=== PATIENT | male | born 1955 | race Caucasian/White ===

== ENCOUNTER 2019-01-19 21:45 | Emergency (ER) | payer MEDICARE, MEDICAID ==
[~2019-01-19] VITALS: Ht 177.8 cm; Wt 84.1 kg
[2019-01-19] MEDS ORDERED: aspirin 81mg tab.chew PO ONE (21:50)
[2019-01-19] MEDS ORDERED: nitroGLYCERIN 0.4mg SUBLingual tab SL PRN (21:50)
--- NOTE | 2019-01-19 22:03 | NUR ---
EKG CALLED FOR 3 TIMES OVER RADIO WITH NO RESPONSE FROM TECH, PT TRIAGED AND BROUGHT STRAIGHT BACK, EKG PERFORMED IN ROOM.
[2019-01-19 22:14] LABS: BASOPHILS # (AUTO) 0.1 X10'3 (0-0.2); BASOPHILS % (AUTO) 1.4 % (0-1); EOSINOPHILS # (AUTO) 0.5 X10'3 (0-0.9); EOSINOPHILS % (AUTO) 5.4 % (0-6); HEMATOCRIT 45.5 % (42.0-52.0); HEMOGLOBIN 15.4 g/dl (14.0-17.9); LYMPHOCYTES # (AUTO) 2.5 X10'3 (1.1-4.8); LYMPHOCYTES % (AUTO) 27.6 % (21-51); MEAN CORPUSCULAR HEMOGLOBIN 32.1 PG (27.0-31.0); MEAN CORPUSCULAR HGB CONC 33.8 g/dL (33.0-36.5); MEAN CORPUSCULAR VOLUME 94.9 FL (78-98); MONOCYTES # (AUTO) 0.7 X10'3 (0-0.9); MONOCYTES % (AUTO) 7.9 % (2-12); NEUTROPHILS # (AUTO) 5.3 X10'3 (1.8-7.7); NEUTROPHILS % (AUTO) 57.7 % (42-75); PLATELET COUNT 205 X10'3 (140-440); RED BLOOD COUNT 4.79 X10'6 (4.70-6.10); RED CELL DISTRIBUTION WIDTH 14.1 % (11.5-14.5); WHITE BLOOD COUNT 9.1 X10'3 (4.5-11.0)
[2019-01-19 22:29] LABS: ALANINE AMINOTRANSFERASE 16 U/L (12-78); ALBUMIN 3.2 G/DL (3.4-5.0); ALBUMIN/GLOBULIN RATIO 0.8 (1.1-1.5); ALKALINE PHOSPHATASE 66 IU/L (46-116); ANION GAP 10 (8-16); ASPARTATE AMINO TRANSFERASE 14 U/L (10-37); BILIRUBIN,TOTAL 0.3 MG/DL (0.1-1.0); BLOOD UREA NITROGEN 19 MG/DL (7-18); BUN/CREATININE RATIO 15.7 (5.4-32.0); CALCIUM 8.7 MG/DL (8.5-10.1); CHLORIDE 106 MMOL/L (99-107); CREATININE 1.21 MG/DL (0.60-1.10); GLUCOSE 111 MG/DL (70-104); POTASSIUM 3.8 MMOL/L (3.5-5.1); SODIUM 143 MMOL/L (135-145); TOTAL CARBON DIOXIDE 26.7 MMOL/L (24-32); eGFR 60 ML/MIN
[2019-01-19 22:33] VITALS: BP 106/49
[2019-01-19 22:35] LABS: MAGNESIUM 1.8 MG/DL (1.5-2.4)
== END 2019-01-20 01:22 | disposition home or self-care (01) ==
LOC: ER 21:46
DX: R06.02 Shortness of breath (principal); R07.9 Chest pain, unspecified; F17.200 Nicotine dependence, unspecified, uncomplicated
CPT/HCPCS: 36415; 71045; 80053; 83735; 83880; 84484; 85025; 93005; 99284

== ENCOUNTER 2020-04-28 19:56 | Emergency (ER) | payer MEDICARE, MEDICAID ==
[~2020-04-28] VITALS: Ht 175.3 cm; Wt 78.0 kg
[2020-04-28] MEDS ORDERED: ketorolac tromethamine 15mg/ml inj. IM ONE (20:45)
[2020-04-28] MEDS ORDERED: CYCL-1 PO (21:09)
[2020-04-28] MEDS ORDERED: IBUP-1984 PO (21:09)
[2020-04-28 21:27] VITALS: BP 132/76
== END 2020-04-28 21:29 | disposition home or self-care (01) ==
LOC: ER 19:57
DX: M54.6 Pain in thoracic spine (principal); Z79.899 Other long term (current) drug therapy
CPT/HCPCS: 96372; 99284; J1885

== ENCOUNTER 2020-09-14 02:02 | Emergency (ER) | payer MEDICARE, MEDICAID ==
[~2020-09-14] VITALS: Ht 175.3 cm; Wt 77.3 kg
[~2020-09-14 02:02] MED LIST: CYCL-1 PO
[2020-09-14 02:05] VITALS: BP 138/76
[2020-09-14] MEDS ORDERED: PRED20TA PO (02:17)
== END 2020-09-14 02:30 | disposition home or self-care (01) ==
LOC: ER 02:03
DX: R21 Rash and other nonspecific skin eruption (principal); Z79.899 Other long term (current) drug therapy
CPT/HCPCS: 99283

== ENCOUNTER 2024-03-24 09:07 | Emergency (ER) | payer MEDICARE, MEDICAID ==
[~2024-03-24] VITALS: Ht 175.3 cm; Wt 73.5 kg
[2024-03-24 09:12] VITALS: BP 113/71; PULSE 61; RESP 18; O2SAT 98
[2024-03-24] MEDS ORDERED: CEPH-585 PO (10:25)
[2024-03-24] MEDS ORDERED: NYST15CR37 TOP (10:25)
[2024-03-24] MEDS ORDERED: SULF1TAB49 PO (10:25)
[2024-03-24 11:01] VITALS: TEMP 97.8
== END 2024-03-24 11:02 | disposition home or self-care (01) ==
LOC: ER 09:07
DX: L03.314 Cellulitis of groin (principal)
CPT/HCPCS: 93005; 99283

== ENCOUNTER 2024-04-25 05:51 | Emergency (ER) | payer MEDICARE, MEDICAID ==
[~2024-04-25] VITALS: Ht 175.3 cm; Wt 81.8 kg
[~2024-04-25 05:51] MED LIST changes: +CEPH-585 PO
[2024-04-25 05:53] VITALS: TEMP 98.5
[2024-04-25 06:15] LABS: BASOPHILS # (AUTO) 0.1 X10'3 (0-0.2); EOSINOPHILS # (AUTO) 0.5 X10'3 (0-0.9); EOSINOPHILS % (AUTO) 6.7 % (0-6); HEMATOCRIT 41.6 % (42.0-52.0); HEMOGLOBIN 13.8 g/dl (14.0-17.9); LYMPHOCYTES # (AUTO) 3.1 X10'3 (1.1-4.8); LYMPHOCYTES % (AUTO) 45.3 % (21-51); MEAN CORPUSCULAR HEMOGLOBIN 32.5 PG (27.0-31.0); MEAN CORPUSCULAR HGB CONC 33.1 g/dL (33.0-36.5); MEAN CORPUSCULAR VOLUME 98.3 FL (78-98); MEAN PLATELET VOLUME 7.7 FL (7.4-10.4); MONOCYTES # (AUTO) 0.5 X10'3 (0-0.9); MONOCYTES % (AUTO) 7.3 % (2-12); NEUTROPHILS # (AUTO) 2.7 X10'3 (1.8-7.7); NEUTROPHILS % (AUTO) 39.7 % (42-75); PLATELET COUNT 201 X10'3 (140-440); RED BLOOD COUNT 4.23 X10'6 (4.70-6.10); RED CELL DISTRIBUTION WIDTH 14.4 % (11.5-14.5); WHITE BLOOD COUNT 6.9 X10'3 (4.5-11.0)
[2024-04-25 06:36] LABS: ALBUMIN 3.1 G/DL (3.4-5.0); ANION GAP 7 (8-16); BLOOD UREA NITROGEN 10 MG/DL (7-18); BUN/CREATININE RATIO 9.8 (10.0-20.0); CALCIUM 7.8 MG/DL (8.5-10.1); CREATININE 1.02 MG/DL (0.60-1.10); POTASSIUM 3.8 MMOL/L (3.5-5.1); PRO BRAIN NATRIURETIC PEPTIDE 165 PG/ML (0-125); SODIUM 145 MMOL/L (135-145); TOTAL CARBON DIOXIDE 25.2 MMOL/L (24-32); eCRCL 66 ML/MIN; eGFR 72 ML/MIN
[2024-04-25 06:40] LABS: GLUCOSE 77 MG/DL (70-104)
[2024-04-25 06:41] LABS: CHLORIDE 113 MMOL/L (99-107)
[2024-04-25 10:15] VITALS: BP 133/91; PULSE 61; RESP 16; O2SAT 95
== END 2024-04-25 10:16 | disposition home or self-care (01) ==
LOC: ER 05:51
DX: T82.199A Other mechanical complication of unspecified cardiac device, initial encounter (principal); F17.200 Nicotine dependence, unspecified, uncomplicated; Z79.2 Long term (current) use of antibiotics
CPT/HCPCS: 36415; 71045; 80048; 83880; 84484; 85025; 93005; 99285; 99291

== ENCOUNTER 2025-01-23 10:33 | Outpatient (CLI) | payer MEDICARE, MEDICAID ==
[2025-01-22 16:38] LABS: ALBUMIN 3.7 G/DL (3.4-5.0); ANION GAP 8 (8-16); BLOOD UREA NITROGEN 17 MG/DL (7-18); CHLORIDE 107 MMOL/L (99-107); CREATININE 1.06 MG/DL (0.60-1.10); SODIUM 142 MMOL/L (135-145); TOTAL CARBON DIOXIDE 26.7 MMOL/L (24-32); eGFR 69 ML/MIN
[2025-01-22 16:44] LABS: GLUCOSE 96 MG/DL (70-104); POTASSIUM 4.8 MMOL/L (3.5-5.1)
[~2025-01-23 10:33] MED LIST changes: +iohexol 350MG/ML 100ml bottle IV ONE
== END 2025-01-23 23:59 | disposition home or self-care (01) ==
LOC: RAD 10:33
PROVIDERS: ATTEND Internal Medicine Interventional Cardiology
DX: I65.22 Occlusion and stenosis of left carotid artery (principal); J44.9 Chronic obstructive pulmonary disease, unspecified; I63.40 Cerebral infarction due to embolism of unspecified cerebral artery; R42 Dizziness and giddiness
CPT/HCPCS: 36415; 70498; 80048; Q9967

== ENCOUNTER 2025-10-26 14:29 | Outpatient (CLI) | payer MEDICARE, MEDICAID ==
[~2025-10-26 14:29] MED LIST changes: -CEPH-585 PO; -iohexol 350MG/ML 100ml bottle IV ONE
[2025-10-26] MEDS ORDERED: iohexol 300mg/ml 100ml inj. ONE (15:02)
--- NOTE | 2025-10-26 15:24 | RADIOLOGY REPORT ---
CLINICAL HISTORY: COPD WITH ACUTE LOWER RESPITORY INFECTION. TECHNIQUE: Chest 2 views of the chest were obtained. COMPARISON: DI CHEST,SINGLE VIEW on DOS: 04/25/24, XR CHEST 1 VIEW AP OR PA on DOS: 04/25/24 FINDINGS: The heart size and pulmonary vasculature are normal. The lungs are clear. No pleural effusion is present. There is a dual lead left chest wall pacing device. A cardiac device projects over the left hilar region. IMPRESSION: NO ACUTE CARDIOPULMONARY PROCESS.
--- NOTE | 2025-10-26 16:46 | RADIOLOGY REPORT ---
EXAM: CT CT CHEST W/ IV CONTRAST HISTORY: CHR OBSTRUCTIVE PULMON DISEASE WITH (ACUTE) LOWER RESP INFCT TECHNIQUE: CT angiogram was performed. CT scans at this facility use dose modulation, iterative reconstruction, and/or weight based dosing when appropriate to reduce radiation dose to as low as reasonably achievable. Coronal and sagittal reformations and maximum intensity projection images were created from the transaxial source data by the nanotechnology engineering technologist and workstation, as well as 3-D volume rendered images with MIPs. COMPARISON: DI CHEST,TWO VIEWS on DOS: 10/26/25 FINDINGS: [LOWER NECK]: Unremarkable [LYMPH NODES/MEDIASTINUM]: Right hilar lymph node measuring 1.6 cm. Left para- aortic lymph node measuring 1.5 cm. [CARDIOVASCULAR]: Normal cardiac size. No pericardial effusion. No aneurysmal dilatation of the great vessels. Coronary artery calcifications. [PULMONARY ARTERIES]: No pulmonary arterial filling defect. Normal caliber of the main pulmonary artery. No evidence of elevated right heart pressures. [UPPER ABDOMEN]: Unremarkable. [MUSCULOSKELETAL]: No acute fracture or aggressive focal osseous lesion. Multilevel degenerative change of the visualized spine. [CHEST WALL]: Left anterior chest cardiac device likely compatible with loop recorder [LUNG PARENCHYMA/PLEURAL SPACE]: Atelectasis and/or ground-glass in the left lung base with peribronchial thickening and endobronchial impaction. No pleural effusion or pneumothorax. [id number] centrilobular emphysema. Benign fissural lymph nodes/ nodules along the major fissures. Inconspicuous 1-2 mm peripherally distributed micro nodules IMPRESSION: 1. No CTA evidence of an acute pulmonary embolism. 2. Atelectasis and/or ground-glass in the left lung base with peribronchial thickening and endobronchial impaction. Correlate for developing infiltrate. 3. Indeterminate prominent right lymphadenopathy and para-aortic lymphadenopathy of indeterminate etiology. Given lack of comparison, consider short-term imaging follow up in 3 months to assess for interval change.
== END 2025-10-26 23:59 | disposition home or self-care (01) ==
LOC: RAD 14:29
PROVIDERS: ATTEND Nurse Practitioner Family
DX: J44.0 Chronic obstructive pulmonary disease with (acute) lower respiratory infection (principal); F17.210 Nicotine dependence, cigarettes, uncomplicated; R59.0 Localized enlarged lymph nodes; J98.11 Atelectasis
CPT/HCPCS: 71046; 71260; Q9967